=== PATIENT | female | born 1955 | race Caucasian/White ===

== ENCOUNTER 2020-01-27 08:07 | Day surgery (SDC) | payer MEDICARE, BC ==
[2020-01-26 10:38] VITALS: BMI 23.6
[~2020-01-27 08:07] MED LIST: Fentanyl 100 MCG/2 ML VIAL ONE; Fluorouracil 100 MG, Enoxaparin Sodium 25 MG, EPINEPHrine 0.3 MG in Ophthalmic Irrigati... IRR SCH; Midazolam HCl 2 mg/2 ml Vial ONE
[2020-01-27] MEDS ORDERED: Phenylephrine 2.5% Ophth Soln 5 ML BOT ONE (08:36)
[2020-01-27] MEDS ORDERED: Cyclopentolate 1% Opth Drop 2 ML BOT ONE (08:36)
[2020-01-27] MEDS ORDERED: Lidocaine 1% PF 5 ML VIAL ONE ×2 (10:19)
[2020-01-27] MEDS ORDERED: PROPOFOL 200 MG/20 ML VIAL ONE (10:19)
[2020-01-27] MEDS ORDERED: Enoxaparin Sodium 30 MG/0.3 ML SYRINGE ONE (10:19)
[2020-01-27] MEDS ORDERED: Maxitrol 0.1% Opth Oint 3.5 GM TUBE ONE (10:19)
[2020-01-27] MEDS ORDERED: Triamcinolone 40 MG/ML VIAL ONE (10:19)
[2020-01-27] MEDS ORDERED: Indocyanine Green 25 MG/10 ML VIAL ONE (10:19)
[2020-01-27] MEDS ORDERED: CEFAZOLIN 1 GM VIAL ONE (10:19)
[2020-01-27] MEDS ORDERED: Lidocaine 4% PF 5 ML AMP ONE (10:19)
[2020-01-27] MEDS ORDERED: Bupivacaine PF 0.75% SDV 10 ML ONE (10:19)
[2020-01-27] MEDS ORDERED: Midazolam HCl 2 mg/2 ml Vial ONE (11:09)
--- NOTE | 2020-01-27 13:24 | OP ---
DATE OF PROCEDURE: 01/27/2020 PREOPERATIVE DIAGNOSIS: Macular hole, right eye. POSTOPERATIVE DIAGNOSIS: Macular hole, right eye. PROCEDURES PERFORMED: Pars plana vitrectomy and internal limiting membrane peel, right eye. ANESTHESIA: Local with monitored anesthesia care. PROCEDURE IN DETAIL: The patient was identified in the preoperative holding area where appropriate informed consent for the planned surgical procedure on the right eye had been obtained. The patient was transported to the operative suite where appropriate cardiopulmonary monitoring was established. Local anesthesia was obtained using retrobulbar modified Van Lint lid block using 50:50 mixture of 4% lidocaine and 0.75% bupivacaine. The patient was prepped and draped in the usual sterile manner for ophthalmic surgery in the right eye. Lid speculum was placed on the right eye. A 25-gauge trocar was placed in the conjunctiva and sclera superotemporally, inferotemporally, and supranasally. Infusion line was placed inferotemporally. Light pipe and vitreous cutter were inserted into the eye. Core vitrectomy was performed. Vitreous was trimmed back 360 degrees. Indocyanine green dye was infused in the posterior pole x1, identifying the internal limiting membrane. This was elevated using membrane scraper and peeled across the macula using end gripping forceps. Indirect ophthalmoscopy was used to examine the retina 360 degrees. No holes, breaks, or tears were identified. Complete air-fluid exchange was performed with 10 minutes being allowed for fluid to drain posteriorly. 28% sulfur hexafluoride gas was infused into the eye. Trocars were removed. Eye was noted to retain pressure well. Retrobulbar Kenalog and subconjunctival Ancef were placed. Antibiotic ointment was placed. Eye was patched and shielded. The patient was taken to postoperative recovery unit in good condition, having suffered no immediate perioperative complications. The patient was instructed to keep patch and shield on, avoid lifting or bending, followup appointment with Dr. Vargas. Job ID: [id number]
== END 2020-01-27 12:19 | disposition home or self-care (01) ==
LOC: SDC 08:07
PROVIDERS: ATTEND Ophthalmology Retina Specialist
PROC: 08T43ZZ Resection of Right Vitreous, Percutaneous Approach (ICD-10-PCS; principal; 2020-01-27)
PROC: 08NE3ZZ Release Right Retina, Percutaneous Approach (ICD-10-PCS; 2020-01-27)
DX: H35.341 Macular cyst, hole, or pseudohole, right eye (principal); I10 Essential (primary) hypertension; Z91.040 Latex allergy status; Z88.1 Allergy status to other antibiotic agents; Z98.890 Other specified postprocedural states
CPT/HCPCS: 67025; J0171; J0690; J1650; J2001; J2250; J2704; J3010; J3301; J3490; J9190